=== PATIENT | male | born 1990 | race Caucasian/White ===

== ENCOUNTER 2020-02-24 05:22 | Emergency (ER) | payer OTHER, SELFPAY ==
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
[2020-02-24 05:29] VITALS: PULSE 101; RESP 24; TEMP 36.5; O2SAT 100
[2020-02-24 05:39] VITALS: BP 141/102
[2020-02-24] MEDS: SODIUM CHLORIDE 0.9% IV 1,000 ML 999 ML IV CONT (05:56)
[2020-02-24] MEDS: MORPHINE SULFATE (*CRX) 4 MG/ML INJ IV PUSH (05:56)
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
[2020-02-24 06:12] LABS: Basophils Percent Auto 0.5 % (0.2-1.2); Eosinophils Percent Auto 0.1 % (0-4.4); Hematocrit 42.4 % (42.0-52.0); Hemoglobin 14.8 g/dL (14.0-18.0); Immature Granulocyte Absolute 0.11 K/mm3 (0.00-0.031); Immature Granulocyte Percent A 1.3 % (0-0.5); Lymphocytes Absolute Auto 1.99 K/mm3 (0.9-3.2); Lymphocytes Percent Auto 23.7 % (18.3-44.2); Mean Corpuscular HGB Conc 34.9 g/dl (32-36); Mean Corpuscular Hemoglobin 29.5 pg (26-34); Mean Corpuscular Volume 84.5 fl (80-100); Mean Platelet Volume 9.8 fl (7.4-10.4); Monocytes Absolute Auto 0.6 K/mm3 (0.1-0.6); Monocytes Percent Auto 6.8 % (2.6-8.5); Neutrophils Absolute Auto 5.7 K/mm3 (1.3-6.7); Neutrophils Percent Auto 67.6 % (45.5-73.1); Platelet Count Result 296 k/mm3 (150-375); Red Blood Count 5.02 M/mm3 (4.6-6.20); Red Cell Distribution Width 12.9 % (11.5-14.5); White Blood Count 8.4 K/mm3 (4.5-10.0)
[2020-02-24 06:29] VITALS: BP 128/96; PULSE 102; RESP 22; O2SAT 100
== END 2020-02-24 06:42 | disposition short-term general hospital (02) ==
PROVIDERS: Emergency Provider Emergency Medicine
DX: M54.6 Pain in thoracic spine (principal); F10.129 Alcohol abuse with intoxication, unspecified; V47.5XXA Car driver injured in collision with fixed or stationary object in traffic accident, initial encounter
CPT/HCPCS: 36415; 71045; 72170; 85025; 86850; 86900; 86901; 96361; 96374; 99285; J2270; J7030

== ENCOUNTER 2021-09-22 09:09 | Outpatient (CLI) | payer OTHER, SELFPAY ==
[2021-09-22 09:36] LABS: Basophils Absolute Auto 0.1 K/mm3 (0.0-0.1); Basophils Percent Auto 0.9 % (0.2-1.2); Eosinophils Absolute Auto 0.1 K/mm3 (0-0.3); Eosinophils Percent Auto 0.9 % (0-4.4); Hemoglobin 14.8 g/dL (14.0-18.0); Immature Granulocyte Absolute 0.02 K/mm3 (0.00-0.031); Immature Granulocyte Percent A 0.3 % (0-0.5); Lymphocytes Absolute Auto 1.45 K/mm3 (0.9-3.2); Lymphocytes Percent Auto 24.9 % (18.3-44.2); Mean Corpuscular HGB Conc 34.4 g/dl (32-36); Mean Corpuscular Hemoglobin 29.4 pg (26-34); Mean Corpuscular Volume 85.5 fl (80-100); Mean Platelet Volume 10.9 fl (7.4-10.4); Monocytes Absolute Auto 0.6 K/mm3 (0.1-0.6); Monocytes Percent Auto 9.6 % (2.6-8.5); Neutrophils Absolute Auto 3.7 K/mm3 (1.3-6.7); Neutrophils Percent Auto 63.4 % (45.5-73.1); Platelet Count Result 213 k/mm3 (150-375); Red Blood Count 5.03 M/mm3 (4.6-6.20); Red Cell Distribution Width 12.5 % (11.5-14.5); White Blood Count 5.8 K/mm3 (4.5-10.0)
[2021-09-22 09:50] LABS: Hemoglobin A1C 5.3 % (<5.7)
[2021-09-22 09:51] LABS: Alanine Aminotransferase 18 U/L (6-50); Alkaline Phosphatase 60 U/L (38-126); Anion Gap 11 mmol/L (8-16); Aspartate Amino Transferase 24 U/L (17-59); Bilirubin,Total 0.5 mg/dL (0.2-1.3); Blood Urea Nitrogen 21 mg/dL (9-20); Calcium 9.5 mg/dL (8.4-10.2); Carbon Dioxide 26 mmol/L (22-30); Chloride 104 mmol/L (98-107); Cholesterol 135 mg/dL (0-200); Estimated Glomerular Filt Rate > 60; Glucose 98 mg/dL (65-110); HDL Direct 41 mg/dL; Potassium 4.8 mmol/L (3.4-5.0); Sodium 141 mmol/L (137-145); Triglycerides 34 mg/dL (<150)
[2021-09-22 10:02] LABS: LDL Cholesterol Direct 69 mg/dL
[2021-09-22 10:29] LABS: HIV 1/2 Ab P24 Ag Result Negative (Negative)
== END 2021-09-22 09:10 | disposition home or self-care (01) ==
PROVIDERS: PCP Family Medicine; Visit Provider Nurse Practitioner Family
DX: Z13.29 Encounter for screening for other suspected endocrine disorder (principal); K13.29 Other disturbances of oral epithelium, including tongue; Z83.3 Family history of diabetes mellitus; Z86.39 Personal history of other endocrine, nutritional and metabolic disease; Z13.1 Encounter for screening for diabetes mellitus; Z13.220 Encounter for screening for lipoid disorders
CPT/HCPCS: 36415; 80053; 80061; 83036; 84443; 85025; 86703; G0432

== ENCOUNTER 2023-05-10 13:48 | Outpatient (CLI) | payer OTHER, SELFPAY ==
--- NOTE | ~2023-05-10 | XR_ITS ---
Right Knee Technique: AP and lateral views were obtained. Clinical History: Injury Findings: No fracture or dislocation is seen. Osseous alignment is anatomic. Joint spaces are preserv ed without degenerative or erosive change. Soft tissues are unremarkable. No joint effusion is seen. Impression: Unremarkable right knee radiographs. Reviewed, dictated and finalized at location . Impression: Unremarkable right knee radiographs.
== END 2023-05-10 13:49 | disposition home or self-care (01) ==
LOC: ANHIMG 13:50
PROVIDERS: PCP Family Medicine; Visit Provider Nurse Practitioner Family
DX: M25.561 Pain in right knee (principal)
CPT/HCPCS: 73560

== ENCOUNTER 2023-06-02 12:29 | Outpatient (CLI) | payer OTHER, SELFPAY ==
[2023-06-02 13:14] LABS: Hemoglobin 13.4 g/dL (14.0-18.0); Mean Corpuscular HGB Conc 33.5 g/dl (32-36); Mean Corpuscular Hemoglobin 28.8 pg (26-34); Mean Corpuscular Volume 85.8 fl (80-100); Mean Platelet Volume 10.2 fl (7.4-10.4); Platelet Count Result 218 k/mm3 (150-375); Red Blood Count 4.66 M/mm3 (4.6-6.20); Red Cell Distribution Width 12.3 % (11.5-14.5); White Blood Count 4.9 K/mm3 (4.5-10.0)
[2023-06-02 13:21] LABS: Alanine Aminotransferase 26 U/L (6-50); Albumin Level 4.5 g/dL (3.5-5.1); Alkaline Phosphatase 60 U/L (38-126); Anion Gap 5 mmol/L (4-12); Aspartate Amino Transferase 26 U/L (17-59); Bilirubin,Total 0.7 mg/dL (0.2-1.3); Blood Urea Nitrogen 22 mg/dL (9-20); Calcium 9.1 mg/dL (8.4-10.2); Carbon Dioxide 28 mmol/L (22-30); Chloride 105 mmol/L (98-107); Cholesterol 118 mg/dL (0-200); Estimated Glomerular Filt Rate > 60; Glucose 94 mg/dL (65-110); HDL Direct 46 mg/dL; Potassium 4.3 mmol/L (3.4-5.0); Sodium 138 mmol/L (137-145); Triglycerides < 30 mg/dL (<150)
[2023-06-02 13:32] LABS: LDL Cholesterol Direct 67 mg/dL
[2023-06-02 13:48] LABS: Vitamin D 25 Hydroxy 38.7 ng/mL
== END 2023-06-02 12:30 | disposition home or self-care (01) ==
LOC: ANHLAB 12:30
PROVIDERS: PCP Family Medicine; Visit Provider Nurse Practitioner Family
DX: F10.11 Alcohol abuse, in remission (principal); Z86.39 Personal history of other endocrine, nutritional and metabolic disease; R20.0 Anesthesia of skin; R20.2 Paresthesia of skin; Z13.1 Encounter for screening for diabetes mellitus; Z83.3 Family history of diabetes mellitus; Z13.29 Encounter for screening for other suspected endocrine disorder; Z13.220 Encounter for screening for lipoid disorders; E55.9 Vitamin D deficiency, unspecified
CPT/HCPCS: 36415; 80053; 80061; 82306; 82607; 84443; 85027

== ENCOUNTER 2023-12-11 13:45 | Emergency (ER) | payer OTHER, SELFPAY ==
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
[2023-12-11 13:47] VITALS: BP 152/86; PULSE 92; RESP 15; TEMP 36.6; O2SAT 100
[2023-12-11 13:54] VITALS: O2SAT 100
[2023-12-11 13:57] VITALS: BP 130/85; PULSE 79; RESP 14; O2SAT 100
--- NOTE | 2023-12-11 14:15 | ECG_ITS ---
Test Date: 2023-12-11 14:49:29 Measurements Intervals [place] Rate: 72 P: 47 DE: 155 QRS: 73 QRSD: 98 T: 39 QT: 387 QTc: 426 Interpretive Statements SINUS RHYTHM POSSIBLE RIGHT VENTRICULAR CONDUCTION DELAY [RSR (QR) IN V1/V2] VOLTAGE CRITERIA FOR LVH [MEETS CRITERIA IN ONE OF: R(aVL), S(V1), R(V5), R(V5/V6)+S(V1)] No previous ECG available for comparison Electronically Signed On 12-11-2023 20:35:27 CDT by Truong Richter M.D.
[2023-12-11] MEDS: ASPIRIN 81 MG CHEWABLE TABLET 324 MG PO (14:33)
[2023-12-11 15:15] LABS: Basophils Percent Auto 0.7 % (0.2-1.2); Eosinophils Percent Auto 0.5 % (0-4.4); Hematocrit 42.6 % (42.0-52.0); Hemoglobin 15.1 g/dL (14.0-18.0); Immature Granulocyte Absolute 0.01 K/mm3 (0.00-0.031); Immature Granulocyte Percent A 0.2 % (0-0.5); Lymphocytes Absolute Auto 1.12 K/mm3 (0.9-3.2); Mean Corpuscular HGB Conc 35.4 g/dl (32-36); Mean Corpuscular Hemoglobin 29.7 pg (26-34); Mean Corpuscular Volume 83.9 fl (80-100); Mean Platelet Volume 10.2 fl (7.4-10.4); Monocytes Absolute Auto 0.5 K/mm3 (0.1-0.6); Monocytes Percent Auto 8.4 % (2.6-8.5); Neutrophils Absolute Auto 3.9 K/mm3 (1.3-6.7); Neutrophils Percent Auto 70.2 % (45.5-73.1); Platelet Count Result 218 k/mm3 (150-375); Red Blood Count 5.08 M/mm3 (4.6-6.20); Red Cell Distribution Width 11.9 % (11.5-14.5); White Blood Count 5.6 K/mm3 (4.5-10.0)
[2023-12-11 15:21] LABS: Add Urine Microscopic? YES; Appearance Urine Clear (Clear); Bacteria Urine None Seen /hpf; Bilirubin Urine Negative (Negative); Blood Urine Negative (Negative); Color Urine Yellow (Yellow); Glucose Urine UA Negative (Negative); Ketones Urine Trace mg/dL (Negative); Leukocyte Esterase Ur Negative LEU/UL (Negative); Nitrate Urine Negative (Negative); Non Pathogenic Casts 0-2; Protein Urine Trace mg/dL (Negative); RBC Urine 0-2 /hpf (0-2); Squamous Epithelial Cell Urine None Seen /hpf (Few); Urobilinogen Urine 0.2 mg/dL (<2.0); WBC Urine 0-5 /hpf (0-3)
[2023-12-11 15:27] LABS: Alanine Aminotransferase 32 U/L (6-50); Albumin Level 4.9 g/dL (3.5-5.1); Alkaline Phosphatase 70 U/L (38-126); Anion Gap 9 mmol/L (4-12); Aspartate Amino Transferase 32 U/L (17-59); Bilirubin,Total 1.1 mg/dL (0.2-1.3); Blood Urea Nitrogen 29 mg/dL (9-20); Calcium 9.4 mg/dL (8.4-10.2); Carbon Dioxide 26 mmol/L (22-30); Chloride 103 mmol/L (98-107); Estimated CRCL calculation 91 ml/min; Estimated Glomerular Filt Rate > 60; Glucose 92 mg/dL (65-110); Lipase 143 U/L (23-300); Potassium 4.5 mmol/L (3.4-5.0); Sodium 138 mmol/L (137-145)
[2023-12-11 15:28] LABS: Ethanol < 10 mg/dL (<10); Prothrombin Time 13.6 Seconds (11.1-14.7)
[2023-12-11] MEDS: SODIUM CHLORIDE 0.9% IV 1,000 ML 999 ML IV CONT (15:29)
[2023-12-11 15:30] LABS: Amphetamine Screen Urine Negative (Negative); Barbiturate Screen Urine Negative (Negative); Benzodiazepines Screen Urine Negative (Negative); Cannabinoid Screen Urine Positive (Negative); Cocaine Screen Urine Negative (Negative); Methadone Screen Urine Negative (Negative); Opiate Screen Urine Negative (Negative); Phencyclidine Screen Urine Negative (Negative)
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
[2023-12-11 15:32] VITALS: BP 112/77; PULSE 59; RESP 17; TEMP 36.6; O2SAT 98
[2023-12-11 15:36] LABS: D Dimer < 0.27 ug/mL (<0.48)
[2023-12-11 15:39] LABS: Troponin I < 0.012 ng/mL (0.000-0.034)
[2023-12-11 18:22] VITALS: BP 117/76; PULSE 70; RESP 14; TEMP 36.7; O2SAT 100
== END 2023-12-11 18:28 | disposition home or self-care (01) ==
PROVIDERS: Emergency Provider Registered Nurse; PCP Family Medicine
DX: R07.89 Other chest pain (principal); E86.0 Dehydration; R94.31 Abnormal electrocardiogram [ECG] [EKG]
CPT/HCPCS: 36415; 71046; 80053; 80307; 81001; 82077; 83690; 84484; 85025; 85380; 85610; 85730; 93005; 96360; 99284; A9270; J7030

== ENCOUNTER 2023-12-27 15:47 | Outpatient (CLI) | payer OTHER, SELFPAY ==
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
== END 2023-12-27 15:48 | disposition home or self-care (01) ==
LOC: ANHIMG 15:48
PROVIDERS: PCP Family Medicine; Visit Provider Family Medicine
DX: S22.070D Wedge compression fracture of T9-T10 vertebra, subsequent encounter for fracture with routine healing (principal); X58.XXXD Exposure to other specified factors, subsequent encounter
CPT/HCPCS: 72072

== ENCOUNTER 2024-08-07 09:27 | Outpatient (CLI) | payer OTHER, SELFPAY ==
--- OUTSIDE RECORDS SUMMARY | 2024-08-07 10:05 | XMS_ITS | Referral Summary ---
Author Organization [facility] Address [address] [place] [id number] Care Team Providers Care Records Management Manager Name Role Phone Edinson Ojeda MD Primary Care Provider [phone] Encounters Date Type Department Care Team Description 07/30/2024 Telephone [facility] Orthopaedic Surgery [address] [place] [address] 6th [place] [address] [place] [phone] Jaspal Hope MD MRI/CT results 07/19/2024 6:01 AM CDT - 07/19/2024 11:59 PM CDT Hospital Encounter [facility] ([facility]) [address] [place] [id number] Spinal deformity Discharge Disposition: Discharge to home or self care 07/19/2024 6:01 AM CDT - 07/19/2024 11:59 PM CDT Hospital Encounter [facility] ([facility]) [address] [place] [id number] Jaspal Hope MD Spinal deformity Discharge Disposition: Discharge to home or self care 07/10/2024 Orders Only [facility] Orthopaedic Surgery [address] [place] [address] 6th [place] [address] [place] [phone] Jaspal Hope MD Spinal deformity (Primary Dx) 07/02/2024 Orders Only [facility] Orthopaedic Surgery [address] [place] [address] 6th [place] [address] [place] [phone] Jaspal Hope MD Bilateral low back pain without sciatica, unspecified chronicity (Primary Dx); Thoracic spine pain; Other closed fracture of ninth thoracic vertebra, sequela 06/28/2024 Telephone [facility] Orthopaedic Surgery [address] [facility] 6th [place] [address] [place] [address] Jaspal Hope MD [facility] mri and ct from Last 3 Months Allergies Active Allergy Reactions Criticality Noted Date Comments Penicillins Fever,Nausea & Vomiting Medium 02/13/2024 Medications No known medications Active Problems Problem Noted Date Diagnosed Date Spinal deformity 07/10/2024 Social History Tobacco Use Types Packs/Day Years Used Date Smoking Tobacco: Never Tobacco Cessation:Counseling Given: Not Answered AUDIT-C Answer Date Recorded Frequency of Alcohol Consumption Not on file 02/13/2024 Q2: How many drinks containi ng alcohol do you have on a typical day when you are drinking? Patient does not drink Frequency of Binge Drinking Not on file 01/28 Sex and Gender Information Value Date Recorded Sex Assigned at Not on file Legal Sex Male 9:34 AM CDT Gender Identity Not on file Sexual Orientation Not on file Last Filed Vital Signs Vital Sign Reading Time Taken Comments Blood Pressure - - Pulse - - Temperature - - Respiratory Rate - - Oxygen Saturation - - Inhaled Oxygen Concentration - - Weight 61.2 kg (135 lb) 07/19/2024 6:17 AM CDT Height 165.1 cm (5' 5) 07/19/2024 6:17 AM CDT Body Mass Index 22.47 07/19/2024 6:17 AM CDT Plan of Treatment Not on file Procedures Procedure Name Priority Date/Time Associated Diagnosis Comments CT THORACIC SPINE WO CONTRAST Schedule Routine, Read Routine (OP Routine) 07/19/2024 7:05 AM CDT Spinal deformity MRI THORACIC SPINE WO CONTRAST Schedule Routine, Read Routine (OP Routine) 07/19/2024 6:44 AM CDT Spinal deformity from Last 3 Months Results * CT Thoracic Spine WO Contrast (07/19/2024 7:05 AM CDT) Anatomical Region Laterality Modality Spine N/A Computed Tomogra phy 07/19/2024 11:3 0 AM CDT Impressions 07/19/2024 12:05 PM CDT 1. Chronic mild-moderate compression fractures of T9 and T10. No acute fracture. 2. No significant central spinal canal or neuroforaminal stenosis. 3. Mild diffuse osteopenia. Correlate with laboratory testing. Dictated by: Baldemar Stern M.D. The radiology attending physician has personally reviewed this study, and had reviewed and/or edited this written report and agrees with it. Electronically signed by: Dejuan Lynch MD Narrative 07/19/2024 12:05 PM CDT EXAMINATION: Magnetic resonance imaging (MRI) of the thoracic spine without contrast CT of the thoracic spine without contrast HISTORY: Pain, compression fracture TECHNIQUE: Multiplanar multi-weighted MRI of the thoracic spine was performed without intravenous contrast using the standard protocol. CT of the thoracic spine was obtained without intravenous contrast. COMPARISON: 02/24/2020 FINDINGS: Chronic, moderate T9 compression fracture with approximately 50% height loss. Chronic, mild T10 compression fracture with approximately 10% height loss. No edema within these vertebral bodies. No evidence of acute fracture. Schmorl's node change is present in the superior endplate at T9 and T10 without surrounding edema. Mild degenerative disc disease without evidence of significant central spinal canal or neural foraminal stenosis. No suspicious marrow replacing lesion. The spinal cord signal is normal. Mild kyphosis centered at T9. No significant soft tissue abnormality. Mild diffuse osteopenia. Procedure Note Dejuan Lynch MD - 07/19/2024 EXAMINATION: Magnetic resonance imaging (MRI) of the thoracic spine without contrast CT of the thoracic spine without contrast HISTORY: Pain, compression fracture TECHNIQUE: Multiplanar multi-weighted MRI of the thoracic spine was performed without intravenous contrast using the standard protocol. CT of the thoracic spine was obtained without intravenous contrast. COMPARISON: 02/24/2020 FINDINGS: Chronic, moderate T9 compression fracture with approximately 50% height loss. Chronic, mild T10 compression fracture with approximately 10% height loss. No edema within these vertebral bodies. No evidence of acute fracture. Schmorl's node change is present in the superior endplate at T9 and T10 without surrounding edema. Mild degenerative disc disease without evidence of significant central spinal canal or neural foraminal stenosis. No suspicious marrow replacing lesion. The spinal cord signal is normal. Mild kyphosis centered at T9. No significant soft tissue abnormality. Mild diffuse osteopenia. IMPRESSION: 1. Chronic mild-moderate compression fractures of T9 and T10. No acute fracture. 2. No significant central spinal canal or neuroforaminal stenosis. 3. Mild diffuse osteopenia. Correlate with laboratory testing. Dictated by: Baldemar Stern M.D. The radiology attending physician has personally reviewed this study, and had reviewed and/or edited this written report and agrees with it. Electronically signed by: Dejuan Lynch MD Jaspal Hope MD IMG CT PROCEDURES Final Res ult * MRI Thoracic Spine WO Contrast (07/19/2024 6:44 AM CDT) Anatomical Region Laterality Modality Spine N/A Magnetic Resonan ce 07/19/2024 11:3 0 AM CDT Impressions 07/19/2024 12:05 PM CDT 1. Chronic mild-moderate compression fractures of T9 and T10. No acute fracture. 2. No significant central spinal canal or neuroforaminal stenosis. 3. Mild diffuse osteopenia. Correlate with laboratory testing. Dictated by: Baldemar Stern M.D. The radiology attending physician has personally reviewed this study, and had reviewed and/or edited this written report and agrees with it. Electronically signed by: Dejuan Lynch MD [facility] 07/19/2024 12:05 PM CDT EXAMINATION: Magnetic resonance imaging (MRI) of the thoracic spine without contrast CT of the thoracic spine without contrast HISTORY: Pain, compression fracture TECHNIQUE: Multiplanar multi-weighted MRI of the thoracic spine was performed without intravenous contrast using the standard protocol. CT of the thoracic spine was obtained without intravenous contrast. COMPARISON: 02/24/2020 FINDINGS: Chronic, moderate T9 compression fracture with approximately 50% height loss. Chronic, mild T10 compression fracture with approximately 10% height loss. No edema within these vertebral bodies. No evidence of acute fracture. Schmorl's node change is present in the superior endplate at T9 and T10 without surrounding edema. Mild degenerative disc disease without evidence of significant central spinal canal or neural foraminal stenosis. No suspicious marrow replacing lesion. The spinal cord signal is normal. Mild kyphosis centered at T9. No significant soft tissue abnormality. Mild diffuse osteopenia. Procedure Note Dejuan Lynch MD - 07/19/2024 EXAMINATION: Magnetic resonance imaging (MRI) of the thoracic spine without contrast CT of the thoracic spine without contrast HISTORY: Pain, compression fracture TECHNIQUE: Multiplanar multi-weighted MRI of the thoracic spine was performed without intravenous contrast using the standard protocol. CT of the thoracic spine was obtained without intravenous contrast. COMPARISON: 02/24/2020 FINDINGS: Chronic, moderate T9 compression fracture with approximately 50% height loss. Chronic, mild T10 compression fracture with approximately 10% height loss. No edema within these vertebral bodies. No evidence of acute fracture. Schmorl's node change is present in the superior endplate at T9 and T10 without surrounding edema. Mild degenerative disc disease without evidence of significant central spinal canal or neural foraminal stenosis. No suspicious marrow replacing lesion. The spinal cord signal is normal. Mild kyphosis centered at T9. No significant soft tissue abnormality. Mild diffuse osteopenia. IMPRESSION: 1. Chronic mild-moderate compression fractures of T9 and T10. No acute fracture. 2. No significant central spinal canal or neuroforaminal stenosis. 3. Mild diffuse osteopenia. Correlate with laboratory testing. Dictated by: Baldemar Stern M.D. The radiology attending physician has personally reviewed this study, and had reviewed and/or edited this written report and agrees with it. Electronically signed by: Dejuan Lynch MD Jaspal Hope MD IM MRI PROCEDURES Final Re sult from Last 3 Months Insurance [facility] Care Teams Records Management Manager Relationship Specialty Start Date End Date Edinson Ojeda MD [address] [place] [address] PCP - General Family Medicine 07/09/24
--- OUTSIDE RECORDS SUMMARY | 2024-08-07 10:06 | XMS_ITS | Clinical Summary ---
Author Organization [facility] Address [address] [place] [id number] Care Team Providers Care Internal Review And Audit Compliance Name Role Phone Edinson Ojeda MD Primary Care Provider [phone] Allergies Active Allergy Reactions Criticality Noted Date Comments Penicillins Fever,Nausea & Vomiting Medium 02/13/2024 Medications No known medications Active Problems Problem Noted Date Diagnosed Date Spinal deformity 07/10/2024 Encounters Date Type Department Care Team Description 07/30/2024 Telephone [facility] Orthopaedic Surgery [address] [place] [address] 6th [place] [address] [place] [address] Jaspal Hope MD MRI/CT results 07/19/2024 6:01 AM CDT - 07/19/2024 11:59 PM CDT Hospital Encounter [facility] ([facility]) [address] [place] [address] Spinal deformity Discharge Disposition: Discharge to home or self care 07/19/2024 6:01 AM CDT - 07/19/2024 11:59 PM CDT Hospital Encounter [facility] ([facility]) [address] [place] [address] Jaspal Hope MD Spinal deformity Discharge Disposition: Discharge to home or self care 07/10/2024 Orders Only [facility] Orthopaedic Surgery [address] [place] [address] 6th [place] [address] [place] [id number] Jaspal Hope MD Spinal deformity (Primary Dx) 07/02/2024 Orders Only [facility] Orthopaedic Surgery [address] [place] [address] 6th [place] [address] [place] [phone] Jaspal Hope MD Bilateral low back pain without sciatica, unspecified chronicity (Primary Dx); Thoracic spine pain; Other closed fracture of ninth thoracic vertebra, sequela 06/28/2024 Telephone [facility] Orthopaedic Surgery [address] [facility] 6th [place] [address] [place] [id number] Jaspal Hope MD [facility] mri and ct from Last 3 Months Medical History Medical History Date Comments Addiction to drug (HCC) Anxiety Social History Tobacco Use Types Packs/Day Years [...] on file Sexual Orientation Not on file Obstetrics History Last Filed Vital Signs Vital Sign Reading Time Taken Comments Blood Pressure - - Pulse - - Temperature - - Respiratory Rate - - Oxygen Saturation - - Inhaled Oxygen Concentration - - Weight 61.2 kg (135 lb) 07/19/2024 6:17 AM CDT Height 165.1 cm (5' 5) 07/19/2024 6:17 AM CDT Body Mass Index 22.47 07/19/2024 6:17 AM CDT Plan of Treatment Health Maintenance Due Date Last Done Comments Depression Screening 1991 Hepatitis C Screening 1991 Varicella Vaccines (1 of 2 - 13+ 2-dose series) 02/21/2004 Hepatitis B Screening 2009 Regular Well Visit/Exam 18-64 2009 Influenza Vaccine (Season Ended) 2024 DTaP/Tdap/Td Vaccine (2 - Td or Tdap) 02/23/2030 02/24/2020 HPV Vaccines Aged Out No longer eligi ble based on patient's age to complete this topic Pneumococcal vaccine <65 Aged Out No longer eligible based on patient's age to complete this topic Procedures Procedure Name Priority Date/Time Associated Diagnosis [...] it. Electronically signed by: Dejuan Lynch MD us Jaspal Hope MD IMG CT PROCEDURES Final [...] it. Electronically signed by: Dejuan Lynch MD [facility] 07/19/2024 12:05 PM CDT EXAMINATION: Magnetic resonance [...] Dejuan Lynch MD Jaspal Hope MD IMG MRI PROCEDURES Final Re sult from Last 3 Months Insurance [facility] Care Teams Internal Review And Audit Compliance Relationship Specialty Start Date End Date Edinson Ojeda MD [address] [place] [address] PCP - General Family Medicine 07/09/24
[2024-08-07 10:10] LABS: Anion Gap 9 mmol/L (4-12); Blood Urea Nitrogen 19 mg/dL (9-20); Calcium 9.4 mg/dL (8.4-10.2); Carbon Dioxide 24 mmol/L (22-30); Chloride 105 mmol/L (98-107); Estimated Glomerular Filt Rate > 60; Glucose 105 mg/dL (65-110); Potassium 4.6 mmol/L (3.4-5.0); Sodium 138 mmol/L (137-145)
[2024-08-07 10:30] LABS: Vitamin D 25 Hydroxy 42.9 ng/mL
[2024-08-10 11:28] LABS: Testosterone Free 69.9 pg/mL (35.0-155.0); Testosterone Total 503 ng/dL (250-1100)
== END 2024-08-07 09:28 | disposition home or self-care (01) ==
LOC: ANHLAB 09:29
PROVIDERS: PCP Family Medicine; Visit Provider Family Medicine
DX: S22.070D Wedge compression fracture of T9-T10 vertebra, subsequent encounter for fracture with routine healing (principal); E55.9 Vitamin D deficiency, unspecified; X58.XXXD Exposure to other specified factors, subsequent encounter
CPT/HCPCS: 36415; 80048; 82306; 84402; 84403